=== PATIENT | male | born 1930 | race Caucasian/White ===

== ENCOUNTER 2016-10-04 15:30 | Inpatient (IN) ==
[2016-10-04] MEDS ORDERED: NS 1,000 ML IV ONE (16:07)
--- NOTE | 2016-10-04 16:35 | Diag Imaging Result Doc PS360 ---
EXAM: CHEST-PORTABLE HISTORY: CP TECHNIQUE: Portable AP COMPARISON: None. FINDINGS: The lungs are well expanded. Sternal wires are present. The heart is not enlarged. The vessels are not distended. No pneumonia. No pleural effusions identified. IMPRESSION: Negative chest. Electronically signed by Alfonso Rosado 10/04/2016 4:32 PM
[2016-10-04 16:57] LABS: MANUAL DIFF NEEDED? NO
[2016-10-04 17:04] LABS: BASO% 0.3 % (0.0-0.8); EOS# 0.46 X1000 (0.0-0.7); EOS% 6.5 % (0.0-10.0); HEMATOCRIT 37.5 % (42.0-52.0); HEMOGLOBIN 12.6 g/dL (14.0-18.0); IMM GRAN# 0.03 X1000 (0.0-0.04); IMM GRAN% 0.4 % (0.0-0.5); LYMPH# 1.51 X1000 (1.2-3.4); LYMPH% 21.2 % (20.5-51.1); MCH 29.4 PG (27-31); MCHC 33.6 g/dL (33-37); MCV 87.6 FL (81-99); MPV 11.3 FL (7.4-10.4); NEUT% 64.6 % (42.2-75.2); PLT 204 X1000 (130-400); RBC 4.28 XMIL (4.7-6.1)
[2016-10-04 17:17] LABS: INR 1.12; PROTIME 11.8 Seconds (9.2-11.7); PTT 26.8 Seconds (22.0-36.0)
[2016-10-04] MEDS ORDERED: CARDIZEM IV ONE (17:37)
[2016-10-04 17:43] LABS: ALBUMIN 3.7 g/dL (3.5-5.0); CALCIUM 8.9 mg/dL (8.8-10.2); POTASSIUM 4.4 mmol/L (3.5-5.1); TOTAL BILIRUBIN 0.83 mg/dL (0.20-1.00); TOTAL PROTEIN 6.6 g/dL (6.3-8.3)
[2016-10-04] MEDS ORDERED: CARDIZEM 100 MG/NS 100 MG/100 ML IVPB IV SCH ×2 (18:19→19:42)
--- NOTE | 2016-10-04 18:26 | PROVIDER DOCUMENTATION ---
This chart was entered by Jo San Scribe, acting as scribe for Panda Brown MD. HPI-Chest Pain - General Chief Complaint: Chest Pain Stated Complaint: CHEST PAIN Time Seen by Provider: 10/04/16 15:55 Source: patient Allergies/Adverse Reactions: Patient Allergies Allergy/AdvReac Type Severity Reaction Status Date / Time amoxicillin [From Augmentin] Allergy Unknown Verified 10/04/16 15:54 atorvastatin [From Lipitor] Allergy Unknown Verified 10/04/16 15:54 clavulanic acid Allergy Unknown Verified 10/04/16 15:54 [From Augmentin] - History of Present Illness-CP Nature of Presenting Problem: 85 yo M presents to the ER with complaint of CP. Was given nitro and it dropped his systolic BP from 102 to 78. Pt has hx of dementia, complaining of SOB and chest discomfort. Onset/Duration: 1 hour ago Associated Symptoms: reports: shortness of breath Nitro Today/Relief: 0.4 mg x 1, provided by EMS Review of Systems - Adult - REVIEW OF SYSTEMS - ADULT ROS:: limited per condition Constitutional: denies: chills, fever Eyes: reports: no symptoms reported Ears, Nose, Mouth & Throat: reports: no symptoms reported Cardiovascular: reports: chest pain. denies: palpitations Respiratory: reports: shortness of breath. denies: cough Gastrointestinal: reports: no symptoms reported Genitourinary: reports: no symptoms reported Musculoskeletal: reports: no symptoms reported Integumentary: reports: no symptoms reported Neurological: reports: no symptoms reported Psychiatric: reports: no symptoms reported Endocrine: reports: no symptoms reported Hematologic/Lymphatic: reports: no symptoms reported Allergic/Immunologic: reports: no symptoms reported All Other Systems: Reviewed and Negative Past History - Adult - PAST MEDICAL HISTORY-ADULT Review of Records: reports: Nursing Assessment Review, Medications Reviewed - PRIOR SURGERIES/PROCEDURES Surgical/Procedure History: reports: CABG - IMMUNIZATION STATUS Childhood Immunizations: See Nurse Assessment Flu Vaccine: See Nurse Assessment Physical Exam-General - PHYSICAL EXAM-ADULT Initial Vital Signs Reviewed: Yes - CONSTITUTIONAL General Appearance: alert, no apparent distress - EYES Eyes: PERRL/EOMI, pink conjunctivae - HEAD, EARS, NOSE, MOUTH & THROAT HENMT: normocephalic/atraumatic, normal ENT inspection, TMs normal, pharynx normal - NECK Neck: supple, normal inspection - RESPIRATORY Respiratory: no respiratory distress, no accessory muscle use - CARDIOVASCULAR Cardiovascular: normal peripheral pulses, tachycardia - GASTROINTESTINAL (ABDOMEN) Abdominal Exam: normal bowel sounds, non tender, soft - MUSCULOSKELETAL Back Exam: no CVA tenderness, no vertebral tenderness Extremity: normal gait, normal inspection - SKIN Integumentary: normal color, warm/dry - NEUROLOGIC Neurologic: grossly normal, no motor/sensory deficits - PSYCHIATRIC Psych/Mental Status: normal mood/affect, normal thought content, normal thought process, oriented x 3 Progress - PLAN OF CARE/RESULTS Progress/Plan/Lab Results: Vital Signs - 8 hr 10/04/16 15:51 Temperature 97.7 F Pulse Rate 136 H Respiratory Rate 20 Blood Pressure 87/50 O2 Sat by Pulse Oximetry 96 Laboratory Results - last 24 hr 10/04/16 10/04/16 10/04/16 16:36 16:36 16:36 WBC 7.13 RBC 4.28 L Hgb 12.6 L Hct 37.5 L MCV 87.6 MCH 29.4 MCHC 33.6 RDW Std Deviation 14.9 H Plt Count 204 MPV 11.3 H Immature Gran % (Auto) 0.4 Neut % (Auto) 64.6 Lymph % (Auto) 21.2 George % (Auto) 7.0 Eos % (Auto) 6.5 Baso % (Auto) 0.3 Immature Gran # (Auto) 0.03 Neut # (Auto) 4.61 Lymph # (Auto) 1.51 George # (Auto) 0.50 Eos # (Auto) 0.46 Baso # (Auto) 0.02 PT INR PTT (Actin FS) Sodium 138 Potassium 4.4 Chloride 100 Carbon Dioxide 24 L Anion Gap 14 BUN 75 H Creatinine 3.4 H Estimated GFR/1.73 m2 17 BUN/Creatinine Ratio 22 Glucose 103 Calculated Osmolality 298 Calcium 8.9 Magnesium 2.0 Total Bilirubin 0.83 AST 19 ALT 13 Alkaline Phosphatase 87 Creatine Kinase 116 Troponin T Wlz-D-Olczklpmjse Pept 1857 H Total Protein 6.6 Albumin 3.7 Globulin 2.9 Albumin/Globulin Ratio 1.3 10/04/16 10/04/16 16:36 16:36 WBC RBC Hgb Hct MCV MCH MCHC RDW Std Deviation Plt Count MPV Immature Gran % (Auto) Neut % (Auto) Lymph % (Auto) George % (Auto) Eos % (Auto) Baso % (Auto) Immature Gran # (Auto) Neut # (Auto) Lymph # (Auto) George # (Auto) Eos # (Auto) Baso # (Auto) PT 11.8 H INR 1.12 PTT (Actin FS) 26.8 Sodium Potassium Chloride Carbon Dioxide Anion Gap BUN Creatinine Estimated GFR/1.73 m2 BUN/Creatinine Ratio Glucose Calculated Osmolality Calcium Magnesium Total Bilirubin AST ALT Alkaline Phosphatase Creatine Kinase Troponin T < 0.010 Ghr-H-Jqtzjcjfmhq Pept Total Protein Albumin Globulin Albumin/Globulin Ratio Orders Category Date Time Status Cardiac Monitoring DIRECTED Care 10/04/16 16:06 Active Saline Loc NOW Care 10/04/16 16:06 Active CHEST-PORTABLE [RAD] Stat Exams 10/04/16 16:06 Completed CBC WITH ELECTRONIC DIFF [HEME] Stat Lab 10/04/16 16:36 Completed CK PROFILE [SP CHEM] Stat Lab 10/04/16 16:36 Completed COMPREHENSIVE METABOLIC PANEL [CHEM] Stat Lab 10/04/16 16:36 Completed MAGNESIUM [CHEM] Stat Lab 10/04/16 16:36 Completed PRO B-NATRIURETIC PEPTIDE Stat Lab 10/04/16 16:36 Completed PROTIME WITH INR [COAG] Stat Lab 10/04/16 16:36 Completed PTT [COAG] Stat Lab 10/04/16 16:36 Completed TROPONIN T Stat Lab 10/04/16 16:36 Completed 0.9% Sodium Chloride Inj [Ns] 1,000 ml Med 10/04/16 16:07 Discontinued IV 999 mls/hr Diltiazem 100 mg/Ns [Cardizem 100 mg/Ns] Med 10/04/16 18:19 Ordered 100 mg in 100 ml IV Per Protocol Diltiazem [Cardizem] Med 10/04/16 17:37 Discontinued 10 mg IV NOW ONE Laboratory Tests 10/04/16 10/04/16 10/04/16 16:36 16:36 16:36 WBC 7.13 RBC 4.28 L Hgb 12.6 L Hct 37.5 L MCV 87.6 MCH 29.4 MCHC 33.6 RDW Std Deviation 14.9 H Plt Count 204 MPV 11.3 H Immature Gran % (Auto) 0.4 Neut % (Auto) 64.6 Lymph % (Auto) 21.2 George % (Auto) 7.0 Eos % (Auto) 6.5 Baso % (Auto) 0.3 Immature Gran # (Auto) 0.03 Neut # (Auto) 4.61 Lymph # (Auto) 1.51 George # (Auto) 0.50 Eos # (Auto) 0.46 Baso # (Auto) 0.02 PT INR PTT (Actin FS) Sodium 138 Potassium 4.4 Chloride 100 Carbon Dioxide 24 L Anion Gap 14 BUN 75 H Creatinine 3.4 H Estimated GFR/1.73 m2 17 BUN/Creatinine Ratio 22 Glucose 103 Calculated Osmolality 298 Calcium 8.9 Magnesium 2.0 Total Bilirubin 0.83 AST 19 ALT 13 Alkaline Phosphatase 87 Creatine Kinase 116 Troponin T Kpu-Y-Xzyutphffkt Pept 1857 H Total Protein 6.6 Albumin 3.7 Globulin 2.9 Albumin/Globulin Ratio 1.3 10/04/16 10/04/16 16:36 16:36 WBC RBC Hgb Hct MCV MCH MCHC RDW Std Deviation Plt Count MPV Immature Gran % (Auto) Neut % (Auto) Lymph % (Auto) George % (Auto) Eos % (Auto) Baso % (Auto) Immature Gran # (Auto) Neut # (Auto) Lymph # (Auto) George # (Auto) Eos # (Auto) Baso # (Auto) PT 11.8 H INR 1.12 PTT (Actin FS) 26.8 Sodium Potassium Chloride Carbon Dioxide Anion Gap BUN Creatinine Estimated GFR/1.73 m2 BUN/Creatinine Ratio Glucose Calculated Osmolality Calcium Magnesium Total Bilirubin AST ALT Alkaline Phosphatase Creatine Kinase Troponin T < 0.010 Nvb-R-Sclgczxzink Pept Total Protein Albumin Globulin Albumin/Globulin Ratio Result Diagrams: 10/04/16 16:36 10/04/16 16:36 - EKG 1 Time of EKG reading by physician:: 15:37 EKG Read and Signed by:: Manuel Rosenberg EKG Interpretation (*Must complete 3 of following elements*): Abnormal Rate: 62 Rhythm: a-fib [place]: left QRS: other (low voltage) ME Interval: normal ST Wave: non-specific ST changes - XRAY 1 XRAY Study: Chest Impression: See EMR Report - CONSULTS/PCP/HOSPITALIST Notification #1 *Consult/PCP/Hospitalist*: DR King Time Discussed: 18:25 Consult Disposition: Admit Departure - Departure Date of Disposition Decision: 10/04/16 Time of Disposition Decision: 18:25 DIAGNOSIS: New onset a-fib, Unstable angina Renal failure (ARF), acute on chronic Qualifiers: Acute renal failure type: unspecified Chronic kidney disease stage: unspecified stage Qualified Code(s): N17.9 - Acute kidney failure, unspecified; N18.9 - Chronic kidney disease, unspecified Disposition: ADMITTED INPATIENT 09 [facility] Medical Emergency: Emergent Condition: Fair - Critical Care Note This patient required my direct & personal management of CC.: No This chart was documented by the indicated scribe, (Jo San Scribe) and accurately reflects the services I performed and decisions made by me, Panda Brown MD, as attested by the provider's signature.
[2016-10-04 19:02] LABS: URINE CULTURE NEEDED? NO; URINE MICRO REVIEW NEEDED? NO; URINE SOURCE CLEAN CATCH
[2016-10-04 19:18] LABS: BILIRUBIN URINE NEGATIVE (NEGATIVE); BLOOD URINE NEGATIVE (NEGATIVE); COLOR YELLOW; GLUCOSE URINE NEGATIVE (NEGATIVE); LEUKOCYTES URINE NEGATIVE (NEGATIVE); NITRITE URINE NEGATIVE (NEGATIVE); PROTEIN URINE NEGATIVE (NEGATIVE); SP GRAVITY URINE 1.009; TURBIDITY URINE CLEAR (CLEAR); UR CREAT RANDOM 98.7 mg/dL (14-26); UROBILINOGEN URINE NORMAL (NORMAL)
[2016-10-04 19:20] LABS: UR EPITHELIAL CELLS <10 /HPF (<10); URINE BACTERIA NEGATIVE /HPF; URINE RBC <10 /HPF (<10); URINE WBC <10 /HPF (<10)
[2016-10-04] MEDS ORDERED: NS 500 ML IV ONE (19:41)
[2016-10-04] MEDS ORDERED: NORCO-5 PO PRN (23:24)
[2016-10-04] MEDS ORDERED: NS 1,000 ML IV SCH (23:24)
[2016-10-04] MEDS ORDERED: ZOFRAN IV PRN (23:24)
[2016-10-04] MEDS: PRAVACHOL PO SCH (23:47)
[2016-10-04] MEDS: PRILOSEC PO SCH (23:47)
[2016-10-05] MEDS: AMBIEN PO SCH ×2 (01:06→20:39)
[2016-10-05] MEDS: NS 1,000 ML IV SCH ×2 (01:07→09:12)
[2016-10-05] MEDS ORDERED: ATIVAN IM ONE (02:22)
[2016-10-05 02:56] LABS: URINE CULTURE NEEDED? NO; URINE MICRO REVIEW NEEDED? NO; URINE SOURCE CATH
[2016-10-05 02:59] LABS: BILIRUBIN URINE NEGATIVE (NEGATIVE); BLOOD URINE NEGATIVE (NEGATIVE); COLOR YELLOW; GLUCOSE URINE NEGATIVE (NEGATIVE); LEUKOCYTES URINE NEGATIVE (NEGATIVE); NITRITE URINE NEGATIVE (NEGATIVE); PROTEIN URINE NEGATIVE (NEGATIVE); SP GRAVITY URINE 1.011; TURBIDITY URINE CLEAR (CLEAR); UROBILINOGEN URINE NORMAL (NORMAL)
[2016-10-05 03:00] LABS: UR EPITHELIAL CELLS <10 /HPF (<10); URINE BACTERIA NEGATIVE /HPF; URINE RBC <10 /HPF (<10); URINE WBC <10 /HPF (<10)
[2016-10-05 04:38] LABS: MANUAL DIFF NEEDED? NO
[2016-10-05] MEDS ORDERED: HALDOL IM ONE (04:45)
[2016-10-05 04:54] LABS: BASO% 0.3 % (0.0-0.8); EOS# 0.44 X1000 (0.0-0.7); EOS% 5.8 % (0.0-10.0); HEMATOCRIT 38.1 % (42.0-52.0); IMM GRAN# 0.02 X1000 (0.0-0.04); IMM GRAN% 0.3 % (0.0-0.5); LYMPH# 1.49 X1000 (1.2-3.4); LYMPH% 19.6 % (20.5-51.1); MCH 29.6 PG (27-31); MCHC 34.1 g/dL (33-37); MCV 86.8 FL (81-99); MONO# 0.56 X1000 (0.11-0.59); MONO% 7.4 % (1.7-9.3); MPV 11.7 FL (7.4-10.4); NEUT% 66.6 % (42.2-75.2); PLT 205 X1000 (130-400); RBC 4.39 XMIL (4.7-6.1)
[2016-10-05 04:59] LABS: INR 1.13; PTT 24.9 Seconds (22.0-36.0)
[2016-10-05 05:02] LABS: ALBUMIN 3.6 g/dL (3.5-5.0); CALCIUM 8.8 mg/dL (8.8-10.2); MAGNESIUM 1.7 mg/dL (1.5-2.7); POTASSIUM 4.7 mmol/L (3.5-5.1); TOTAL BILIRUBIN 0.94 mg/dL (0.20-1.00); TOTAL PROTEIN 6.5 g/dL (6.3-8.3)
--- NOTE | 2016-10-05 07:21 | EKG Report ---
Test Performed on : 10/05/2016 05:43:23 AM Test Reason : chest pain; afib Blood Pressure : / mmHG Vent. Rate : 068 BPM Atrial Rate : 288 BPM P-R Int : 000 ms QRS Dur : 090 ms QT Int : 452 ms P-R-T Axes : 000 -37 043 degrees QTc Int : 480 ms junctional rythm Left axis deviation Low voltage QRS Nonspecific ST and T wave abnormality Prolonged QT Abnormal ECG When compared with ECG of 04-OCT-2016 15:37, (Unconfirmed) Current undetermined rhythm precludes rhythm comparison, needs review Confirmed by Juan MCCALL, MRanjith Paris ([id number]) on 10/05/2016 12:27:59 PM
--- NOTE | 2016-10-05 08:04 | HISTORY AND PHYSICAL ---
PRIMARY CARE PROVIDER: None. CHIEF COMPLAINT: Low blood pressure, dizziness. HISTORY OF PRESENT ILLNESS: Mr. Max Aguirre is an 85-year-old male with a history of dementia, making it very difficult to get a medical history accurately from him. At the bedside is an employee from [facility] where he lives. They also were unable to provide much medical history. Apparently, he has been running a low blood pressure since Tuesday. They have been holding his blood pressure medications. He has also been having some dizziness and not eating well. When asking the patient about this, he denies it all. He presented to the ER with atrial fibrillation with a rapid ventricular rate up to the 130s. He did receive diltiazem 10 mg IV x1 dose with a drip started, which is controlling his heart rate less than 100 at this time. Apparently, he received nitroglycerin for complaints of chest pain, but the patient also states he has never had chest pain. The nitroglycerin made him hypotensive requiring IV fluid bolus which improved the blood pressure. Other lab work revealed the patient may have KING. It is unknown if he has a chronic kidney dysfunction. We will do IV fluids and we will also order urine studies. When reviewing medication list from [facility], it appears that he has been on Levaquin and fluconazole, but for the reason why is unknown. Urinalysis is currently pending. Given the hypotension and his atrial fibrillation with RVR and requiring a Cardizem drip, we will transfer to the ICU. PAST MEDICAL HISTORY: Arthritis, coronary artery disease, hypertension, hyperlipidemia, dementia, COPD, and GERD. This is according to medications that he is on and some information obtained via [facility] records. SURGICAL HISTORY: He has had open heart surgery. There are sternal wires. Patient stated it was valve replacement but was unable to give any more information. Denies any other surgeries. SOCIAL HISTORY: He used to smoke and is a nonsmoker at this time. Is a resident of [facility], and apparently he can walk without any assistive devices. FAMILY HISTORY: Noncontributory. REVIEW OF SYSTEMS: Difficult to obtain. ALLERGIES: Amoxicillin, atorvastatin, clavulanic acid. HOME MEDICATIONS: Acetaminophen 1300 mg p.o. every 8 hours p.r.n. extended release, clonazepam 1 mg p.o. daily, eszopiclone 1 mg p.o. nightly, Pepcid 40 mg p.o. daily, [place] 5 one tab p.o. every 4 hours p.r.n. for pain, isosorbide mononitrate extended release 30 mg p.o. daily, lisinopril/hydrochlorothiazide 20-12.5 mg p.o. daily, Lopressor 25 mg p.o. twice daily, pravastatin 40 mg p.o. nightly, Exelon patch transdermal daily. PHYSICAL EXAMINATION: VITAL SIGNS: Temperature 97.7 degrees, heart rate on admit was 136, currently is 92, still in atrial fibrillation. Respiratory rate 23, blood pressure 121/93, O2 saturation 96% on room air. Height 6 foot 0 inch tall, 250 pounds, BMI 29.2. GENERAL: Mr. Aguirre is a pleasantly confused 85-year-old male. He is in no acute distress. Very disoriented to questions. HEENT: Atraumatic, normocephalic. Pupils equal, round, reactive to light. Extraocular movements intact. Mucous membranes are dry. NECK: No JVD or carotid bruits noted. CARDIOVASCULAR: Irregularly irregular rate and rhythm. No rubs, gallops, murmurs. PULMONARY: Clear to auscultation. Bilateral breath sounds. No accessory muscle use or work of breathing noted. GI: Soft, nontender, nondistended. Positive bowel sounds x4. EXTREMITIES: No edema noted. Plus 2 dorsalis and radial pulses. NEUROLOGIC: Disoriented. He is oriented to name only, but apparently this is his baseline of orientation. SKIN: Warm, dry, intact. LABORATORY DATA: White blood cells 7000, hemoglobin 12, hematocrit 37, platelet count 204,000. INR is 1.12. PTT is 26.8. Sodium 138, potassium 4.4, BUN 75, creatinine 3.4, glucose 103, magnesium 2.0, total bilirubin 0.83, AST 19, ALT 13, CK 116, troponins less than 0.01. ProBNP is 1857. Urinalysis pending. IMAGING: Chest x-ray: Negative for any acute findings. The sternal wire is present. Heart is not enlarged. No pneumonia. No pleural effusions. EKG: Atrial fibrillation. Rate was 62. QTc 456. ASSESSMENT/PLAN: 1. New onset atrial fibrillation with rapid ventricular response. Received IV Cardizem IV push. We will continue with IV drip, Electrolytes are stable. Echocardiogram has been ordered. 2. Coronary artery disease history. Currently holding on beta candice. We will continue a statin. 3. Hypertension. Apparently, he had some hypotension after arrival. All antihypertensives will be held for now. 4. Hyperlipidemia. Continue statin. 5. Acute kidney injury. It is unknown if he has any chronic kidney disease. BUN and creatinine are elevated. We will do urine studies and give 2 L of IV fluids at 75 an hour. 6. Dementia history. Continue home medications. 7. Chronic obstructive pulmonary disease. No exacerbation. Had a history of smoking in the past. 8. Gastroesophageal reflux disease. Continue Pepcid. 9. Arthritis. Continue with Tylenol. 10. Deep venous thrombosis prophylaxis. Sequential compression devices. 11. Gastrointestinal prophylaxis. Again, with Pepcid. Dictated by JEAN PIERRE Ornelas for Uli King MD cc: JEAN PIERRE Ornelas MD I have seen and examined this patient and I agree with the above evaluation and plan. farhad FAITH
[2016-10-05] MEDS ORDERED: KLONOPIN PO SCH (09:00)
[2016-10-05] MEDS: PEPCID PO SCH (09:12)
[2016-10-05] MEDS: PRILOSEC PO SCH ×2 (09:12→20:39)
[2016-10-05] MEDS: EXELON 9.5MG/24HRS TD SCH (09:13)
--- NOTE | 2016-10-05 09:52 | EKG Report ---
Test Performed on : 10/04/2016 3:37:31 PM Test Reason : ED. NOT ORDERED IN [place] Blood Pressure : / mmHG Vent. Rate : 062 BPM Atrial Rate : 058 BPM P-R Int : 000 ms QRS Dur : 088 ms QT Int : 450 ms P-R-T Axes : 000 -40 061 degrees QTc Int : 456 ms Atrial fibrillation. Left axis deviation Low voltage QRS Nonspecific ST abnormality Abnormal ECG No previous ECGs available Unconfirmed Result
[2016-10-05 10:27] LABS: CK INDEX 1.4 (0.0-2.5); CK-MB 5.07 ng/mL (0.0-5.0)
--- NOTE | 2016-10-05 16:13 | ECHO REPORT ---
ORDER DATE: 10/05/2016 INDICATIONS: 1. Chest pain. 2. New onset atrial fibrillation. FINDINGS: 1. Right atrium is mildly enlarged at 4.3 cm. 2. Mild tricuspid regurgitation. 3. Mild reduction in RV systolic function with enlargement of the right ventricle. 4. Mild pulmonic insufficiency. 5. Mild left atrial enlargement at 4.5 cm. 6. No mitral prolapse. Mild mitral regurgitation. 7. Normal LV size, end-diastolic dimension of 4.9. Normal wall thicknesses with a posterior and interventricular septal wall thickness of 0.9 cm each. Normal LV systolic function. Estimated EF of 60% with normal wall motion. 8. The aortic valve appears to open well. No evidence of stenosis or insufficiency. 9. Aorta appears somewhat enlarged with a dimension of 4 cm at the root. 10. No pericardial effusion seen. cc: MD Jillian Briones CRNP Raphael K. Quansah, MD
--- NOTE | 2016-10-05 16:13 | PROGRESS NOTE ---
DATE: 10/05/2016 SUBJECTIVE: The patient is sleeping comfortable in bed. As per nursing staff, the heart rate with Cardizem drip has dropped to 40-50s, so that medication was stopped yesterday. No chest pain. No shortness of breath. OBJECTIVE: Vital Signs: Temperature 97.7, heart rate 73, respiratory rate 18, blood pressure 114/62, O2 saturation 100% on room air. General: An 85-year-old, male, lying in bed, in no acute distress. HEENT: Head is normocephalic, atraumatic. Anicteric sclerae and pale conjunctivae. Mucous membranes moist. Neck: Supple. No JVD noted. No carotid bruits. No lymphadenopathy. No thyromegaly. Cardiovascular: S1, S2 heard. Irregularly irregular. No murmurs, gallops, or rubs. Respiratory: Clear bilaterally to auscultation. No work of breathing or using accessory muscles. Abdomen: Soft, nontender to palpation. Bowel sounds present. No organomegaly. Extremities: No clubbing, cyanosis, or edema. Peripheral pulses present in both legs. Neurological: Patient is sleeping, but responds to verbal stimuli. Moves 4 extremities. LABORATORY DATA: White cell count 7.6, hemoglobin 13.0, hematocrit 38.1, platelets 205. BMP shows creatinine 2.2. ASSESSMENT AND PLAN: 1. New onset atrial fibrillation with rapid ventricular response. We got records from [facility] because this patient was just recently discharged, so apparently he had this problem for a while. This is a paroxysmal atrial fibrillation. At this time, he is not on any Cardizem drip. That medication was stopped yesterday because he was dropping heart rate in the range of 40s and 50s. At this time, the heart rate is between 60 and 70 without any medication. We will continue with the same management. 2. Coronary artery disease, aware. As per last left heart catheterization done in [facility]. Apparently recommendation was to consult cardiovascular surgery to see if this patient is a good candidate for coronary artery bypass graft. Will see what Cardiology has to say. 3. Acute kidney injury. Although we do not know the baseline of this patient, the creatinine of 3.3 has improved to 2.2 today. We will continue with IV fluids. 4. Alzheimer's dementia. We will continue with home medications. 5. Chronic obstructive pulmonary disease. Patient is not on any exacerbation. 6. Gastroesophageal reflux disease. We will continue with Pepcid. 7. Osteoarthritis. We will continue with Tylenol. cc: MD Uli Díaz MD
[2016-10-05 17:24] LABS: CK INDEX 1.3 (0.0-2.5); CK-MB 4.86 ng/mL (0.0-5.0)
--- NOTE | 2016-10-05 17:33 | CONSULTATION ---
DATE OF CONSULTATION: 10/05/2016 IMPRESSION: 1. Atrial fibrillation, duration unknown. 2. Advanced dementia. 3. Atherosclerotic coronary disease. 4. Valvular heart disease. Details not known. 5. Hypertension. 6. Hyperlipidemia. 7. Chronic obstructive pulmonary disease. 8. Gastroesophageal reflux. RECOMMENDATIONS: 1. Judicious heart rate control with metoprolol. At present patient is not on any rate lowering medications. 2. Echocardiography. 3. Continue aspirin daily for now. Patient is at significant risk for falls. HISTORY: This 85-year-old white male with past history of dementia, atherosclerotic coronary disease, valvular heart disease, hypertension and hyperlipidemia was brought to the emergency room from [facility] because of low blood pressure. He has been having some dizziness. He reportedly has not been eating well. He has been recently treated with antibiotics for unknown reason. He was noted to have low blood pressure and was brought to the emergency room. He was in atrial fibrillation with rapid ventricular rate and was initially started on intravenous Cardizem. Heart rate came under control. However through the night he developed some tendency for bradycardia and this was discontinued several hours ago. He is not able give any significant history due to his confusion. PAST MEDICAL HISTORY: 1. Dementia. 2. Atherosclerotic coronary disease. 3. Hypertension. 4. Hyperlipidemia. 5. Chronic obstructive pulmonary disease. 6. Valvular heart disease. 7. Gastroesophageal reflux. PAST SURGICAL HISTORY: Includes unspecified cardiac surgery possible valve replacement. No other surgical history available. ALLERGIES: He is allergic or intolerant to amoxicillin, atorvastatin and clavulanic acid. MEDICATIONS: Prior to admission as listed. SOCIAL HISTORY: He has history of previous cigarette use. He is currently a resident of [facility]. FAMILY HISTORY: Negative for premature coronary disease. REVIEW OF SYSTEMS: Not reliably obtainable given patient's confusion. PHYSICAL EXAMINATION: General: Reveals a elderly white male in no distress. Vital Signs: As recorded are stable. ECG monitor showing atrial fibrillation with controlled rate response. HEENT: Extraocular movements intact. Mucous membranes moist. Neck: Supple without jugular venous distention. There are no carotid bruits. Chest: Clear to auscultation. Cardiac Exam: Reveals an irregular rate and rhythm without appreciable murmur or gallop. Abdomen: Soft, nontender. Bowel sounds are normal. Extremities: Without edema. Neurologic Exam: Reveals him to be alert and responsive. He is oriented to person only. Speech is fluent. Moves all 4 extremities equally well. DATA: ECG demonstrates atrial fibrillation with heart rate of 68 beats per minute, left axis deviation, low voltage QRS and nonspecific ST and T-wave abnormality. cc: MD Uli Salcedo MD
[2016-10-05] MEDS: PRAVACHOL PO SCH (20:39)
[2016-10-05] MEDS: KLONOPIN PO SCH (23:16)
[2016-10-06] MEDS: PRILOSEC PO SCH ×2 (10:02→20:33)
[2016-10-06] MEDS: PEPCID PO SCH (10:02)
[2016-10-06] MEDS: EXELON 9.5MG/24HRS TD SCH (10:02)
[2016-10-06] MEDS ORDERED: LOPRESSOR PO SCH (11:14)
[2016-10-06 11:30] LABS: MANUAL DIFF NEEDED? NO
[2016-10-06 11:31] LABS: EOS# 0.25 X1000 (0.0-0.7); EOS% 2.8 % (0.0-10.0); HEMATOCRIT 42.5 % (42.0-52.0); HEMOGLOBIN 14.1 g/dL (14.0-18.0); IMM GRAN# 0.03 X1000 (0.0-0.04); IMM GRAN% 0.3 % (0.0-0.5); LYMPH# 1.34 X1000 (1.2-3.4); LYMPH% 14.8 % (20.5-51.1); MCH 29.5 PG (27-31); MCHC 33.2 g/dL (33-37); MCV 88.9 FL (81-99); MONO# 0.92 X1000 (0.11-0.59); MONO% 10.2 % (1.7-9.3); MPV 11.3 FL (7.4-10.4); NEUT% 70.9 % (42.2-75.2); PLT 197 X1000 (130-400); RBC 4.78 XMIL (4.7-6.1)
[2016-10-06 11:52] LABS: CALCIUM 8.8 mg/dL (8.8-10.2); POTASSIUM 4.3 mmol/L (3.5-5.1)
--- NOTE | 2016-10-06 15:33 | PROGRESS NOTE ---
DATE: 10/06/2016 SUBJECTIVE: Patient continues without complaint. OBJECTIVE: Vital Signs: Blood pressure 129/71, heart rate 100 and irregular with ECG monitor showing atrial fibrillation. There is no significant jugular venous distention. Chest: Clear to auscultation. Cardiac Exam: Reveals an irregular rate and rhythm without appreciable murmur or gallop. There is no evidence of peripheral edema. IMPRESSION: 1. Atrial fibrillation. His atrial fibrillation is chronic. Patient had elevated heart rate on presentation but this has come under better control. 2. Atherosclerotic coronary disease with history of previous coronary bypass grafting in 2006. 3. Dementia. 4. Hypertension. 5. Hyperlipidemia. RECOMMENDATIONS: 1. Low-dose beta-candice as tolerated for rate control. 2. Patient has been on aspirin chronically and has not been felt to be a candidate for anticoagulation due to fall risk. 3. Conservative cardiovascular plans overall. We will see further on an as needed basis. cc: MD Uli Salcedo MD
--- NOTE | 2016-10-06 15:52 | PROGRESS NOTE ---
DATE: 10/06/2016 SUBJECTIVE: Patient is feeling fine. Patient is still very sleepy today and as per nursing staff apparently he was alert until he got pain medications and also medications for sleeping. No other acute issues as per nursing staff. OBJECTIVE: Vital Signs: Temperature 97.6 degrees, heart rate 68, respiratory rate 19, blood pressure 129/71, O2 saturation 100% on room air. General Examination: This is an 85-year-old, chronically ill-looking, male, lying in bed, in no acute distress. HEENT: Head is normocephalic, atraumatic. Anicteric sclerae and pale conjunctivae. Mucous membranes moist. Neck: Supple. No JVD noted. No carotid bruits. No lymphadenopathy. No thyromegaly. Cardiovascular Examination: S1-S2 heard, irregularly irregular. No murmurs, gallops, or rubs. Respiratory Examination: Clear bilaterally to auscultation. No work of breathing or using accessory muscles. Abdomen: Soft, nontender to palpation. Bowel sounds present. No organomegaly. Extremities: No clubbing, cyanosis, or edema. Peripheral pulses present in both legs. Neurological: Patient is sleeping but responds to stimuli. He moves all 4 extremities. LABORATORY DATA: Reviewed. Hemoglobin 14.1, and the creatinine is 1.3. ASSESSMENT AND PLAN: 1. New onset atrial fibrillation. The heart rate is controlled without any medication. Patient has been evaluated by Cardiology and they recommend aspirin considering his high risk of falling. We will follow recommendations from Cardiology. 2. Acute kidney injury. The creatinine continues to improve and today from 2.2 is 1.2. I think this was acute kidney injury that is resolving nicely. 3. Coronary artery disease. Patient is not complaining of any chest pain. 4. Alzheimer dementia. We will continue home medications. 5. Chronic obstructive pulmonary disease. Patient is not in exacerbation. 6. Gastroesophageal reflux disease. We will continue with Pepcid. 7. Osteoarthritis. We will continue with Tylenol p.r.n. 8. Physical deconditioning. This patient is weak. Discontinue all sedative medication. He is more alert and awake. He can be discharged to his residential where he came from. By now, awaiting a bed on the regular floor. cc: MD Uli Díaz MD
[2016-10-06] MEDS: KLONOPIN PO SCH (20:34)
[2016-10-06] MEDS: PRAVACHOL PO SCH (20:34)
[2016-10-07 06:08] LABS: MANUAL DIFF NEEDED? NO
[2016-10-07 06:29] LABS: AGAP 14; BUN 25 mg/dL (8-22); CALCIUM 9.2 mg/dL (8.8-10.2); CHLORIDE 109 mmol/L (98-107); COSMO 292; POTASSIUM 4.2 mmol/L (3.5-5.1); SODIUM 145 mmol/L (136-145); TCO2 22 mmol/L (25-35)
[2016-10-07 06:40] LABS: BASO% 0.3 % (0.0-0.8); EOS# 0.49 X1000 (0.0-0.7); EOS% 6.3 % (0.0-10.0); HEMATOCRIT 42.4 % (42.0-52.0); HEMOGLOBIN 14.2 g/dL (14.0-18.0); IMM GRAN# 0.02 X1000 (0.0-0.04); IMM GRAN% 0.3 % (0.0-0.5); LYMPH# 1.17 X1000 (1.2-3.4); MCH 29.3 PG (27-31); MCHC 33.5 g/dL (33-37); MCV 87.6 FL (81-99); MONO# 0.62 X1000 (0.11-0.59); MPV 11.6 FL (7.4-10.4); NEUT% 70.1 % (42.2-75.2); PLT 178 X1000 (130-400); RBC 4.84 XMIL (4.7-6.1)
[2016-10-07] MEDS: EXELON 9.5MG/24HRS TD SCH (09:11)
[2016-10-07] MEDS: PRILOSEC PO SCH ×2 (09:11→20:23)
[2016-10-07] MEDS: MYCOSTATIN SUSP PO SCH ×3 (13:47→20:27)
[2016-10-07] MEDS ORDERED: ZOFRAN PO SCH (14:30)
[2016-10-07] MEDS ORDERED: ZOFRAN PO PRN (15:45)
--- NOTE | 2016-10-07 16:27 | PROGRESS NOTE ---
DATE: 10/07/2016 SUBJECTIVE: The patient is definitely more awake and answers questions. Follow commands. He does not recall why he was sleepy. He was a little bit restless overnight. OBJECTIVE: Vital Signs: Temperature 97.4 degrees, heart rate 83, respiratory rate 18, blood pressure 115/44, O2 saturation 97% on room air. General Examination: This is an 85-year-old chronically ill-looking, and demented male, lying in bed, in no acute distress. HEENT: Head is normocephalic, atraumatic. Neck: Supple. No JVD noted. Cardiovascular: S1, S2 heard. Irregularly irregular. No murmurs, gallops, or rubs. Respiratory: Clear bilaterally to auscultation. No work of breathing or using accessory muscles. Abdomen: Soft, nontender to palpation. Bowel sounds present. No organomegaly. Extremities: No clubbing, cyanosis, or edema. Peripheral pulses present in both legs. Neurological: Patient is definitely more alert and awake. Moves 4 extremities. Follow commands. Oriented in place and person. Not in time. LABORATORY DATA: CBC and BMP are unremarkable. ASSESSMENT AND PLAN: 1. New onset atrial fibrillation. Patient is still in Afib but the heart rate is well controlled. He was evaluated by Cardiology. Considering his high risk of falling they recommend aspirin only. No more further evaluation as per Cardiology. 2. Acute kidney injury. That condition is completely resolved. 3. Coronary artery disease. This patient is not complaining of any chest pain. We will continue to monitor. 4. Alzheimer's dementia. Sometimes patient gets restless overnight but today and since this morning the patient is off of restraints. We will continue monitoring this closely. 5. COPD. Patient is not on any exacerbation. We will continue with the home doses of inhalers. 6. Osteoarthritis. We will continue with Tylenol p.r.n. 7. Physical deconditioning. Physical therapy will be consulted to work with this patient. 8. Disposition. The patient was supposed to go to his assisted living facility but he has been evaluated by them and they decided not to take him. Our next step will be get a rehab facility for him. advertising layout worker has been already notified. cc: MD Uli Díaz MD
[2016-10-07] MEDS: PRAVACHOL PO SCH (20:23)
[2016-10-07] MEDS: KLONOPIN PO SCH (20:23)
[2016-10-08 05:23] LABS: MANUAL DIFF NEEDED? NO
[2016-10-08 05:30] LABS: BASO% 0.2 % (0.0-0.8); EOS# 0.48 X1000 (0.0-0.7); EOS% 5.6 % (0.0-10.0); HEMATOCRIT 38.6 % (42.0-52.0); IMM GRAN# 0.02 X1000 (0.0-0.04); IMM GRAN% 0.2 % (0.0-0.5); LYMPH# 1.26 X1000 (1.2-3.4); LYMPH% 14.8 % (20.5-51.1); MCH 29.1 PG (27-31); MCHC 33.7 g/dL (33-37); MCV 86.5 FL (81-99); MONO# 0.71 X1000 (0.11-0.59); MONO% 8.3 % (1.7-9.3); MPV 11.3 FL (7.4-10.4); NEUT% 70.9 % (42.2-75.2); PLT 170 X1000 (130-400); RBC 4.46 XMIL (4.7-6.1)
[2016-10-08 05:59] LABS: AGAP 13; BUN 25 mg/dL (8-22); CALCIUM 8.9 mg/dL (8.8-10.2); CHLORIDE 106 mmol/L (98-107); COSMO 290; POTASSIUM 3.7 mmol/L (3.5-5.1); SODIUM 143 mmol/L (136-145); TCO2 24 mmol/L (25-35)
[2016-10-08] MEDS: PRILOSEC PO SCH ×2 (08:53→22:34)
[2016-10-08] MEDS: MYCOSTATIN SUSP PO SCH ×4 (08:54→22:35)
[2016-10-08] MEDS: EXELON 9.5MG/24HRS TD SCH (08:55)
[2016-10-08] MEDS: TYLENOL PO PRN (12:57)
--- NOTE | 2016-10-08 14:44 | PROGRESS NOTE ---
DATE: 10/08/2016 SUBJECTIVE: The patient continues to be awake today. No acute issues as per nursing overnight. OBJECTIVE: Vital Signs: Temperature 98.1 degrees, heart rate 91, respiratory rate 18, blood pressure 110/63, O2 saturations 97% on room air. GENERAL EXAMINATION: This is an 85-year-old, chronically ill-looking and demented male, lying in bed, in no acute distress.HEENT: Head is normocephalic and atraumatic. Anicteric sclerae and pale conjunctivae. Mucous membranes dry. Neck: Supple. No JVD noted. No carotid bruits. No lymphadenopathy. Cardiovascular: S1, S2 heard, irregularly irregular. No murmurs, gallops, or rubs. Respiratory: Clear bilaterally to auscultation. No work of breathing or using accessory muscles. Abdomen: Soft, nontender to palpation. Bowel sounds present. No organomegaly. Neurological: Patient is alert, moves 4 extremities. LABORATORY DATA: Reviewed. ASSESSMENT AND PLAN: 1. New onset atrial fibrillation. The heart rate is well controlled. Patient has been evaluated by Cardiology. They are not going to put this patient on anticoagulation because of high risk of falling. No further evaluation as per Cardiology's recommendation, 2. Acute kidney injury. Resolved. 3. Coronary artery disease. Patient is not having any chest pain. We will continue to monitor. 4. Alzheimer dementia. Patient sometimes gets restless, but I think this is part of the disease. 5. Chronic obstructive pulmonary disease. Patient is not in any exacerbation just receiving his home inhalers p.r.n. 6. Osteoarthritis. We will continue with Tylenol p.r.n. 7. Physical deconditioning. We have talked with the assisted living where this patient was living before coming to the hospital, and they said that they are not able to take this patient. So at this point, we are going to look for a bed in rehabilitation. As soon as we get a bed we can discharge this patient. cc: Anthony Aguirre MD
[2016-10-08] MEDS: PRAVACHOL PO SCH (22:34)
[2016-10-08] MEDS: KLONOPIN PO SCH (22:35)
[2016-10-09 05:27] LABS: MANUAL DIFF NEEDED? NO
[2016-10-09 05:32] LABS: BASO% 0.3 % (0.0-0.8); EOS# 0.49 X1000 (0.0-0.7); EOS% 6.3 % (0.0-10.0); HEMATOCRIT 37.9 % (42.0-52.0); HEMOGLOBIN 12.9 g/dL (14.0-18.0); IMM GRAN# 0.02 X1000 (0.0-0.04); IMM GRAN% 0.3 % (0.0-0.5); LYMPH# 1.47 X1000 (1.2-3.4); LYMPH% 18.9 % (20.5-51.1); MCH 29.5 PG (27-31); MCV 86.7 FL (81-99); MPV 11.3 FL (7.4-10.4); NEUT% 65.2 % (42.2-75.2); PLT 161 X1000 (130-400); RBC 4.37 XMIL (4.7-6.1)
[2016-10-09 05:49] LABS: AGAP 14; BUN 22 mg/dL (8-22); CALCIUM 8.8 mg/dL (8.8-10.2); CHLORIDE 107 mmol/L (98-107); COSMO 294; POTASSIUM 3.6 mmol/L (3.5-5.1); SODIUM 146 mmol/L (136-145); TCO2 25 mmol/L (25-35)
[2016-10-09] MEDS: GEODON IM PRN ×3 (08:18→18:09)
[2016-10-09] MEDS: MYCOSTATIN SUSP PO SCH ×4 (11:51→23:24)
[2016-10-09] MEDS: EXELON 9.5MG/24HRS TD SCH (11:51)
[2016-10-09] MEDS: PRILOSEC PO SCH ×2 (11:52→23:24)
[2016-10-09] MEDS: STERILE WATER INJ. INJ PRN ×2 (13:46→18:08)
--- NOTE | 2016-10-09 14:15 | PROGRESS NOTE ---
DATE: 10/09/2016 SUBJECTIVE: The patient today is awake with no complaints at this time. He is a little bit disoriented. OBJECTIVE: Vital Signs: Temperature is 97.5, heart rate 65, respiratory rate 18, blood pressure 106/57, and O2 saturation 100% on room air. General: This is a chronically ill-looking and demented 85-year-old male lying in bed in no acute distress. HEENT: The head is normocephalic and atraumatic. Neck: Supple. No JVD noted. Cardiovascular: S1 and S2 are heard. No murmurs, gallops, or rubs. Irregularly irregular heart rhythm. Respiratory: Clear bilaterally to auscultation. No work of breathing or use of accessory muscles. Abdomen: Soft and nontender to palpation. Bowel sounds are present. No organomegaly. Extremities: No clubbing, cyanosis, or edema. Peripheral pulses are present in both legs. Neurological: The patient is alert and moves all 4 extremities. LABORATORY DATA: Reviewed. ASSESSMENT AND PLAN: 1. New onset atrial fibrillation. Heart rate is well controlled. The patient has been followed by Cardiology. We will follow their recommendations. 2. Acute kidney injury, resolved. 3. Coronary artery disease. This patient is definitely not having any chest pain. We will continue to monitor him closely. 4. Alzheimer's dementia. Sometimes he gets restless overnight but I think it is part of the disease. 5. Chronic obstructive pulmonary disease. The patient is not in any exacerbation. We will continue with the same management. 6. Osteoarthritis. We will continue with Tylenol p.r.n.. 7. Physical deconditioning. The patient is going into a rehab facility when we have a bed for him. cc: Anthony Aguirre MD
[2016-10-09] MEDS: KLONOPIN PO SCH (23:24)
[2016-10-09] MEDS: PRAVACHOL PO SCH (23:24)
[2016-10-10 06:01] LABS: MANUAL DIFF NEEDED? NO
[2016-10-10 06:10] LABS: BASO% 0.2 % (0.0-0.8); EOS# 0.19 X1000 (0.0-0.7); EOS% 2.2 % (0.0-10.0); HEMATOCRIT 40.7 % (42.0-52.0); HEMOGLOBIN 13.9 g/dL (14.0-18.0); IMM GRAN# 0.02 X1000 (0.0-0.04); IMM GRAN% 0.2 % (0.0-0.5); LYMPH# 1.29 X1000 (1.2-3.4); LYMPH% 15.2 % (20.5-51.1); MCH 29.5 PG (27-31); MCHC 34.2 g/dL (33-37); MCV 86.4 FL (81-99); MONO# 0.88 X1000 (0.11-0.59); MONO% 10.4 % (1.7-9.3); MPV 11.2 FL (7.4-10.4); NEUT% 71.8 % (42.2-75.2); PLT 165 X1000 (130-400); RBC 4.71 XMIL (4.7-6.1)
[2016-10-10 06:26] LABS: AGAP 13; BUN 17 mg/dL (8-22); CHLORIDE 103 mmol/L (98-107); COSMO 285; POTASSIUM 3.5 mmol/L (3.5-5.1); SODIUM 142 mmol/L (136-145); TCO2 26 mmol/L (25-35)
[2016-10-10] MEDS: MYCOSTATIN SUSP PO SCH ×4 (11:07→19:59)
[2016-10-10] MEDS: GEODON IM PRN (11:56)
[2016-10-10] MEDS: STERILE WATER INJ. INJ PRN (11:56)
[2016-10-10] MEDS: PRILOSEC PO SCH ×2 (11:57→20:00)
[2016-10-10] MEDS: EXELON 9.5MG/24HRS TD SCH (11:57)
--- NOTE | 2016-10-10 17:11 | PROGRESS NOTE ---
DATE: 10/10/2016 SUBJECTIVE: Patient is more awake today. No complaints at this time. No acute issues overnight as per nursing staff. OBJECTIVE: Vital Signs: Temperature 98.4 degrees, heart rate 95, respiratory rate 18. Blood pressure 143/70, O2 saturation 99% on room air. General: This is a chronically ill-looking and demented 85-year-old male, lying in bed, in no acute distress. HEENT: Head is normocephalic, atraumatic. Anicteric sclerae and pale conjunctivae. Mucous membranes moist. Neck: Supple. No JVD noted. No carotid bruits. No lymphadenopathy. No thyromegaly. Cardiovascular: S1, S2 heard. Irregularly irregular heart rate. No murmurs, gallops, or rubs Respiratory: Clear bilaterally to auscultation. No work of breathing or using accessory muscles. Abdomen: Soft, nontender to palpation. Bowel sounds present. No organomegaly. Extremities: No clubbing, cyanosis, or edema. Peripheral pulses present in both legs. Neurological: Patient awake, hard of hearing. Moves 4 extremities. LABORATORY DATA: Reviewed. ASSESSMENT AND PLAN: 1. New onset atrial fibrillation. Heart rate is well controlled. As per Cardiology, Dr. Castaneda and his primary card stripper, patient because of risk of falls is just currently treated with aspirin. We will continue with same management. 2. Acute kidney injury, resolved. 3. Coronary artery disease. Patient is not experiencing any chest pain. 4. Alzheimer's dementia. Once in a while this patient gets restless overnight. I think this is part of the disease. He was fine on previous days. 5. Chronic obstructive pulmonary disease . Patient is on not on any exacerbation. We will continue with the same management. 6. Osteoarthritis. We will continue with Tylenol p.r.n. 7. Physical deconditioning. Patient awaiting placement in a rehab facility. cc: Anthony Aguirre MD
[2016-10-10] MEDS: PRAVACHOL PO SCH (20:00)
[2016-10-10] MEDS: KLONOPIN PO SCH (20:00)
[2016-10-10] MEDS: TYLENOL PO PRN (20:00)
[2016-10-11 06:12] LABS: MANUAL DIFF NEEDED? NO
[2016-10-11 06:23] LABS: BASO% 0.1 % (0.0-0.8); EOS# 0.01 X1000 (0.0-0.7); EOS% 0.1 % (0.0-10.0); HEMATOCRIT 39.1 % (42.0-52.0); HEMOGLOBIN 13.2 g/dL (14.0-18.0); IMM GRAN# 0.02 X1000 (0.0-0.04); IMM GRAN% 0.2 % (0.0-0.5); LYMPH# 1.14 X1000 (1.2-3.4); LYMPH% 10.8 % (20.5-51.1); MCH 29.3 PG (27-31); MCHC 33.8 g/dL (33-37); MCV 86.7 FL (81-99); MONO# 1.22 X1000 (0.11-0.59); MONO% 11.6 % (1.7-9.3); MPV 11.4 FL (7.4-10.4); NEUT% 77.2 % (42.2-75.2); PLT 159 X1000 (130-400); RBC 4.51 XMIL (4.7-6.1)
[2016-10-11 06:39] LABS: CALCIUM 8.9 mg/dL (8.8-10.2); POTASSIUM 3.7 mmol/L (3.5-5.1)
[2016-10-11] MEDS: MYCOSTATIN SUSP PO SCH ×4 (10:15→20:12)
[2016-10-11] MEDS: PRILOSEC PO SCH ×2 (10:15→20:12)
[2016-10-11] MEDS: EXELON 9.5MG/24HRS TD SCH (10:16)
--- NOTE | 2016-10-11 14:25 | PROGRESS NOTE ---
DATE: 10/11/2016 Patient is sleepy today. No complaints at this time. No acute issues overnight as per nursing staff. OBJECTIVE: Vital Signs: Temperature 97.6 degrees, heart rate 93, respiratory rate 18, blood pressure 121/71. O2 saturation 94% on room air. General Examination: This is a chronically ill- looking and demented 85-year-old male, lying in bed, in no acute distress. HEENT: Head is normocephalic, atraumatic. Anicteric sclerae and pale conjunctivae. Mucous membranes moist. Neck: Supple. No JVD noted. No carotid bruits. No lymphadenopathy. No thyromegaly. Cardiovascular: S1, S2 heard. Irregularly irregular. No murmurs, gallops, or rubs. Respiratory: Clear bilaterally to auscultation. No work of breathing or using accessory muscles. Abdomen: Soft, nontender to palpation. Bowel sounds present. No organomegaly. Extremities: No clubbing, cyanosis, or edema. Peripheral pulses present in both legs. Neurological: Patient moves 4 extremities. He is awake, hard of hearing. LABORATORY DATA: Reviewed. ASSESSMENT AND PLAN: 1. New onset atrial fibrillation. Heart rate is well controlled. Patient has been evaluated by Cardiology and Also, his primary fruit grower, because of recent fall has decided to treat this condition just with aspirin. Will continue with the same management. 2. Acute kidney injury, resolved. 3. Coronary artery disease. Patient is not experiencing any chest pain. We will continue with the same management. 4. Alzheimer dementia. Sometimes he got restless on and off overnight, but during the last previous days, he was getting better. 5. Chronic obstructive pulmonary disease. The patient is not on any exacerbation. We will continue with the same management. 6. Osteoarthritis. Will continue with Tylenol p.r.n. 7. Physical deconditioning. The patient is awaiting placement in a rehab facility. Hopefully, it is going to be tomorrow. cc: Anthony Aguirre MD
[2016-10-11] MEDS: PRAVACHOL PO SCH (20:12)
[2016-10-11] MEDS: KLONOPIN PO SCH (20:12)
[2016-10-12 05:52] LABS: MANUAL DIFF NEEDED? NO
[2016-10-12 05:54] LABS: BASO% 0.1 % (0.0-0.8); EOS# 0.11 X1000 (0.0-0.7); EOS% 1.1 % (0.0-10.0); HEMATOCRIT 37.1 % (42.0-52.0); HEMOGLOBIN 12.5 g/dL (14.0-18.0); IMM GRAN# 0.03 X1000 (0.0-0.04); IMM GRAN% 0.3 % (0.0-0.5); LYMPH# 1.23 X1000 (1.2-3.4); LYMPH% 12.3 % (20.5-51.1); MCH 29.2 PG (27-31); MCHC 33.7 g/dL (33-37); MCV 86.7 FL (81-99); MONO# 0.98 X1000 (0.11-0.59); MONO% 9.8 % (1.7-9.3); MPV 11.6 FL (7.4-10.4); NEUT% 76.4 % (42.2-75.2); PLT 156 X1000 (130-400); RBC 4.28 XMIL (4.7-6.1)
[2016-10-12] MEDS: MYCOSTATIN SUSP PO SCH ×2 (08:53→12:40)
[2016-10-12] MEDS: EXELON 9.5MG/24HRS TD SCH (08:53)
[2016-10-12] MEDS: PRILOSEC PO SCH (08:53)
--- NOTE | 2016-10-12 14:57 | DISCHARGE SUMMARY ---
ADMISSION DATE: 10/04/2016 DISCHARGE DATE: 10/12/2016 CONSULTATIONS: Dr. Castaneda with Cardiology. PERTINENT PROCEDURES: Chest x-ray was negative chest. Echocardiogram showed an EF of 60% with normal wall motion. DISCHARGE DIAGNOSES: 1. New onset atrial fibrillation with rapid ventricular response. The patient is now rate controlled. He has been evaluated by Cardiology secondary to his fall history. They have decided to treat him with just aspirin and he will continue on beta candice. Stable. 2. Acute kidney injury, resolved. 3. Coronary artery disease, stable without any chest pain. 4. Alzheimer's dementia. The patient did have episodes of restlessness on and off overnight, but this has improved. 5. Chronic obstructive pulmonary disease without any exacerbation. 6. Osteoarthritis. Continue with Tylenol p.r.n. 7. Physical deconditioning. The patient has been awaiting rehab facility. He will be discharged to [facility] in [place]. HOSPITAL COURSE: Briefly, Mr. Aguirre is an 85-year-old gentleman who carries a past medical history of arthritis, coronary artery disease status post CABG, hypertension, hyperlipidemia, dementia, COPD, GERD. He resides at [facility]. The patient had apparently been running low blood pressure and they had been holding his blood pressure medications. He had also been complaining of dizziness and not eating well. In the ED he was noted to be in atrial fibrillation with RVR in the 130s. He received a dose of Cardizem 10 mg IV x1 with a drip started. He also received nitroglycerin for complaint of chest pain, which made him become hypotensive. He then received IV fluid bolus that improved his blood pressure. Other workup in the ED revealed an acute kidney injury. Unknown if he had any chronic kidney dysfunction. He was transferred to the ICU with a cardiology consult. He was on a Cardizem drip. His beta-blockers were held. His echocardiogram showed an EF of 60% with normal wall motion. Through his night in the ICU he developed some tendency for bradycardia. His Cardizem was discontinued. They felt he was not a candidate for anticoagulation due to his fall risk, so he will continue on his aspirin that he has been on chronically and will continue on his low-dose beta-candice as tolerated for his rate control. Mr. Aguirre was moved out of the ICU to the regular floor. He was noted to be very weak. Physical therapy was consulted to work with the patient. They recommended rehabilitation. [employer] was also consulted. The patient does have a bed at [facility] in [place]. Today he is being discharged. VITAL SIGNS: Temperature is 98 degrees, heart rate 95, respirations 20, blood pressure is 101/63. O2 is 96% on room air. DISCHARGE DIET: Healthy heart. DISCHARGE MEDICATIONS PER DR. FERNANDES: 1. Mapap Arthritis Pain 1300 mg p.o. q.8 hours p.r.n. 2. Aspirin 81 mg p.o. daily. 3. Clonazepam 1 mg p.o. daily. 4. Eszopiclone 1 mg p.o. at bedtime. 5. [place] 5/325 mg 1 each p.o. q.4 hours. 6. Isosorbide mononitrate 30 mg p.o. daily. 7. Lopressor 25 mg p.o. daily. Hold for heart rate less than 60 or systolic blood pressure less than 100. 8. Prilosec 40 mg p.o. b.i.d. 9. Pravachol 40 mg p.o. at bedtime. 10. Exelon 9.5 mg 24 hours patch TD daily. FOLLOWUP: Mr. Aguirre is being discharged to [facility] in [place]. DISCHARGE INSTRUCTIONS: He will continue to take his beta candice for his atrial fibrillation. He will not be placed on any long-term anticoagulation secondary to his fall risk. He will continue with his low dose aspirin, continue on a healthy heart diet. The patient can return to the ED for any worsening of symptoms. DISCHARGE TIME: 30 minutes. Dictated by JEAN PIERRE Jeter for Uli Fernandes MD cc: Uli Fernandes MD
[2016-10-12 15:14] VITALS: BP 123/63
[2016-10-13] MEDS ORDERED: IMDUR PO SCH (09:00)
[2016-10-13] MEDS ORDERED: LOPRESSOR PO SCH (09:00)
[2016-10-13] MEDS ORDERED: ASPIRIN PO SCH (09:00)
[2016-10-13] MEDS ORDERED: PRINZIDE 20/12.5MG PO SCH (09:00)
== END 2016-10-12 16:35 ==
LOC: ED 15:30 → SUATTDRO 21:04 → 3N 21:04 → ICU 21:55 → 4N 10-06 14:10
PROVIDERS: ATTEND Internal Medicine